=== PATIENT | female | born 1975 | race Caucasian/White ===

== ENCOUNTER 2018-01-04 11:56 | Emergency (ER) | payer OTHER ==
[2018-01-04] MEDS ORDERED: methylPREDNISolone 125 MG* 2 ML VIAL IV ONE (12:22)
[2018-01-04] MEDS ORDERED: Albuterol/Ipratropium NEB.SOL* Albuterol 2.5 MG/Ipratropium 0.5 MG 3 ML INH ONE (12:22)
[2018-01-04 12:24] VITALS: BP 124/74
--- NOTE | 2018-01-04 12:36 | UC ---
UC General HPI - HPI Summary HPI Summary: 42 yo female c/o progressive sob, cough last several days. Worse last 3 days. Presents with headache post head and post neck x 3 days, progressively worse. No fever. No rash. 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 pneumonia apr 2018 - Surgical History Surgical History: Yes Surgery Procedure, Year, and Place: 1991, 2001, 2005 CSECTION WITH BILATERAL TUBAL LIGATION IN 2005, [facility] AND [facility]. R carpal tunnel 09/2013 - Family History Known Family History: Positive: Unknown - Social History Alcohol Use: Occasionally Substance Use Type: None Smoking Status (MU): Light Every Day Tobacco Smoker Type: Cigarettes Amount Used/How Often: 2 CIGARETTES PER DAY When Did the Patient Quit Smoking/Using Tobacco: 15 YEARS Review of Systems Constitutional: Fatigue Skin: Negative Eyes: Negative ENT: Negative Respiratory: Shortness Of Breath, Cough Cardiovascular: Negative Gastrointestinal: Negative Genitourinary: Negative Motor: Negative Neurovascular: Negative Musculoskeletal: Negative Neurological: Headache Psychological: Negative Is Patient Immunocompromised?: No All Other Systems Reviewed And Are Negative: Yes Physical Exam Triage Information Reviewed: Yes Appearance: Well-Nourished, Other: - sitting up, tripod position. Looks tired. [place] color. Nondiaphoretic. Vital Signs: Initial Vital Signs Temp 97.7 F 01/04/18 12:07 Pulse 109 01/04/18 12:07 Resp 32 01/04/18 12:07 BP 124/74 01/04/18 12:07 Pulse Ox 98 01/04/18 12:07 Vital Signs Reviewed: Yes Eye Exam: Normal ENT Exam: Normal Neck exam: Other - No meningismus. Moves neck well. + post nuchal crest tenderness. Shoulders tensed. Respiratory Exam: Other - BS are present bilat. + rhonchi scattered. Poor insp effort. Cardiovascular Exam: Other - HR tachycardic, correlates with pulse. Abdominal Exam: Normal - obese Musculoskeletal Exam: Other - moves x 4 ext's. Did not lay back d/t severity sx. Mild edema BLE, grossly equal. Both feet warm to touch. Neurological Exam: Normal - detailed exam not done, grossly intact. CN as grossly intact. Psychological Exam: Normal - conversing easily and appropriately Psychological: Positive: Normal Response To Family Skin Exam: Normal - no visible or reported rash. [place]. Nondiaphoretic. Course/Dx - Course Course Of Treatment: Oxygen saturation level very low, initially noted 60's. Increases to 80's with 2L NC. Subsequently increased to 90's with VM. Apparently Ms. Lopez usually uses NC 2 L but did not have with her today. Nevertheless, she is in tripod position, clearly SOB. ED transport encouraged. Ms. Loepz carefully considered and agreed. EMS notified. I spoke with Eder Milan NP ED. Mom present as well, she will drive. Sp - Differential Dx - Multi-Symptom Provider Diagnoses: SOB. Hypoxia Discharge - Sign-Out/Discharge Documenting (check all that apply): Patient Departure - Discharge Plan Condition: Guarded Disposition: TRANS HIGHER LVL OF CARE FAC Referrals: Carlos Jane MD [Medical Doctor] - - Billing Disposition and Condition Condition: GUARDED Disposition: Trans Higher Lvl of Care Fac
== END 2018-01-04 12:47 | disposition short-term general hospital (02) ==
LOC: UCCORT 11:56
DX: R06.02 Shortness of breath (principal); R09.02 Hypoxemia; R05 Cough; F17.210 Nicotine dependence, cigarettes, uncomplicated; Z88.8 Allergy status to other drugs, medicaments and biological substances; Z91.09 Other allergy status, other than to drugs and biological substances
CPT/HCPCS: 96374; 99213; A9270-GY; G0463; J2930